=== PATIENT | male | born 1980 | race Caucasian/White ===

== ENCOUNTER 2019-09-20 16:11 | Inpatient (IN) | payer BC, OTHER ==
[~2019-09-20] VITALS: Ht 182.9 cm; Wt 95.3 kg
[2019-09-20] MEDS ORDERED: ADENOSINE 6 MG/2 ML ONE (16:47)
[2019-09-20] MEDS ORDERED: SODIUM CHLORIDE FLUSH 10ML SYR IVF ONE (17:00)
[2019-09-20] MEDS ORDERED: ADENOSINE 6 MG/2 ML IVPush ONE ×2 (17:00)
[2019-09-20] MEDS ORDERED: SODIUM CHLORIDE 0.9% 1,000ML IVBOLUS ONE (17:00)
[2019-09-20 17:01] LABS: BASOPHILS # (AUTO) 0.03 x10^3/uL (0-0.1); BASOPHILS % (AUTO) 0 % (0-1); EOSINOPHILS # (AUTO) 0.09 x10^3/uL (0-0.4); EOSINOPHILS % (AUTO) 1 % (1-7); LYMPHOCYTES # (AUTO) 1.96 x10^3/uL (1-3.4); LYMPHOCYTES % (AUTO) 25 % (22-44); MD NO; MEAN CORPUSCULAR HEMOGLOBIN 32.7 pg (27.5-34.5); MEAN CORPUSCULAR VOLUME 99.1 fL (81-97); MEAN PLATELET VOLUME 8.2 fL (7.4-10.4); MONOCYTES # (AUTO) 0.48 x10^3/uL (0.2-0.8); MONOCYTES % (AUTO) 6 % (2-9); NEUTROPHILS # (AUTO) 5.15 x10^3/uL (1.8-6.8); NEUTROPHILS % (AUTO) 67 % (42-75); PLATELET COUNT 220 x10^3/uL (130-400); RED BLOOD COUNT 5.15 x10^6/uL (4.38-5.82); RED CELL DISTRIBUTION WIDTH 13.9 % (9.4-14.8)
[2019-09-20 17:06] LABS: ALANINE AMINOTRANSFERASE 74 U/L (12-78); ALBUMIN 4.2 g/dL (3.4-5.0); ANION GAP 10 mmol/L (5-15); CHLORIDE 109 mmol/L (98-107); CREATININE 1.02 mg/dL (0.7-1.3)
[2019-09-20 17:08] LABS: ALKALINE PHOSPHATASE 60 U/L (45-117); BILIRUBIN,TOTAL 0.4 mg/dL (0.2-1.0); TOTAL PROTEIN 7.7 g/dL (6.4-8.2)
[2019-09-20] MEDS ORDERED: DILTIAZEM 125 MG in SODIUM CHLORIDE 0.9% 100 ML IV SCH ×2 (17:30→19:30)
[2019-09-20] MEDS ORDERED: RIVAROXABAN 20 MG TABLET PO ONE (18:00)
--- NOTE | 2019-09-20 18:00 | NUR ---
LATE NOTE DUE TO PT CARE: PT ARRIVED WITH HR 140-150 FOR A FEW WEEKS. TWO PIV PLACED BY TASK RN. IVF RUNNING, ADENOSINE PULLED AND DRAWN UP, CRASH CART PLACED IN ROOM. DR MCHUGH NOTIFIED PT READY FOR ADENOSINE. ADENOSINE 6MG IV GIVEN WITH NO CHANGE IN HR. ADENOSINE 12MG IV GIVEN WITH SHORT TWO BEAT SLOWING TO SHOW A FLUTTER. PT UPDATED ON POC BY MD AT THAT TIME. PT TO BE ADMITTED. CARDIZEM RUNNING PER MAY. PT RESTING COMFORTABLY ON RKREMMLING. LEANNA.
[2019-09-20] MEDS ORDERED: RIVAROXABAN 20 MG TABLET ONE (18:54)
[2019-09-20] MEDS ORDERED: NICOTINE 14MG/24 HR PATCH.TD24 ONE (18:54)
[2019-09-20] MEDS ORDERED: NICOTINE 14MG/24 HR PATCH.TD24 TD ONE (19:00)
--- NOTE | 2019-09-20 19:05 | NUR ---
PT AMBULATED TO RESTROOM WITH STEADY GAIT AND PROVIDED URINE SAMPLE. RN REHABILITATION PER MAY. PT CONNECTED TO ALL MONITORING AND MEDS. HR STILL IN 140s. NOTIFIED.
[2019-09-20 19:30] LABS: AMPHETAMINE SCREEN, URINE Negative (Negative); BARBITURATE SCREEN, URINE Negative (Negative); BENZODIAZEPINE SCREEN, URINE Negative (Negative); CANNABINOID SCREEN, URINE Positive (Negative); COCAINE SCREEN, URINE Negative (Negative); METHADONE SCREEN, URINE Negative (Negative); OPIATE SCREEN, URINE Negative (Negative)
--- NOTE | 2019-09-20 19:30 | NUR ---
HOSPITALIST AT BEDSIDE.
[2019-09-20] MEDS ORDERED: LORazepam 2 MG/ML, 1ML ONE (19:37)
--- NOTE | 2019-09-20 19:40 | NUR ---
STAINED GLASS PAINTER PER MAR.
--- NOTE | 2019-09-20 19:57 | NUR ---
REPORT GIVEN TO ANA COHEN.
[2019-09-20] MEDS ORDERED: LORazepam 2 MG/ML, 1ML IVPush ONE (20:00)
[2019-09-20] MEDS ORDERED: PROMETHAZINE 25 MG/ML, 1ML IM PRN (20:30)
[2019-09-20] MEDS ORDERED: ACETAMINOPHEN 325 MG TABLET PO PRN (20:30)
[2019-09-20] MEDS ORDERED: LORazepam 2 MG/ML, 1ML IV PRN ×5 (20:30)
[2019-09-20] MEDS ORDERED: LORazepam 0.5MG TABLET PO PRN (20:30)
[2019-09-20] MEDS ORDERED: LORazepam 1MG TABLET PO PRN ×2 (20:30)
[2019-09-20 21:02] VITALS: BP 119/82
[2019-09-20] MEDS ORDERED: NICOTINE 14MG/24 HR PATCH.TD24 TD SCH (21:30)
[2019-09-20] MEDS ORDERED: [UNRECOGNIZED DRUG - REMARK] MC SCH (21:30)
[2019-09-20] MEDS ORDERED: DIAZEPAM 10 MG TABLET PO SCH (22:00)
[2019-09-20] MEDS: DIAZEPAM 5 MG TABLET PO SCH (22:20)
[2019-09-20] MEDS: POTASSIUM CHLORIDE 20 MEQ, MAGNESIUM SULFATE 2 GM, THIAMINE 200 MG, MVI ADULT 10 ML, FO... IV SCH (22:20)
[2019-09-21] VITALS: BP 117/78
[2019-09-21] MEDS: DILTIAZEM 125 MG in SODIUM CHLORIDE 0.9% 100 ML IV SCH ×2 (01:27→08:44)
[2019-09-21] MEDS: DIAZEPAM 5 MG TABLET PO SCH ×5 (04:30→21:58)
[2019-09-21 07:50] VITALS: BP 135/80
[2019-09-21] MEDS: POTASSIUM CHLORIDE 20 MEQ, MAGNESIUM SULFATE 2 GM, THIAMINE 200 MG, MVI ADULT 10 ML, FO... IV SCH (08:44)
[2019-09-21] MEDS ORDERED: METOPROLOL TARTRATE 25 MG TAB ONE (08:47)
[2019-09-21 08:48] LABS: ANION GAP 6 mmol/L (5-15); CALCIUM 8.9 mg/dL (8.5-10.1); CHLORIDE 110 mmol/L (98-107); CREATININE 0.79 mg/dL (0.7-1.3)
[2019-09-21] MEDS: METOPROLOL TARTRATE 25 MG TAB PO SCH ×2 (08:49→17:19)
[2019-09-21] MEDS: APIXABAN 5 MG TABLET PO SCH ×2 (08:51→19:53)
[2019-09-21] MEDS ORDERED: SODIUM CHLORIDE 0.9% 1,000 ML IV SCH (10:00)
[2019-09-21] MEDS ORDERED: PROPOFOL 10 MG/ML, 20ML ONE ×2 (10:35)
[2019-09-21 12:14] VITALS: BP 122/89
[2019-09-21] MEDS ORDERED: RIVAROXABAN 20 MG TABLET PO SCH (17:00)
[2019-09-21 19:38] VITALS: BP 138/100
[2019-09-22] MEDS: DIAZEPAM 5 MG TABLET PO SCH ×2 (04:00→09:32)
[2019-09-22 05:06] VITALS: BP 147/99
[2019-09-22] MEDS: METOPROLOL TARTRATE 25 MG TAB PO SCH (05:11)
[2019-09-22 05:25] LABS: ANION GAP 6 mmol/L (5-15); CHLORIDE 110 mmol/L (98-107); CREATININE 0.88 mg/dL (0.7-1.3)
[2019-09-22 05:27] LABS: BASOPHILS # (AUTO) 0.02 x10^3/uL (0-0.1); BASOPHILS % (AUTO) 0 % (0-1); EOSINOPHILS # (AUTO) 0.04 x10^3/uL (0-0.4); EOSINOPHILS % (AUTO) 0 % (1-7); LYMPHOCYTES # (AUTO) 1.25 x10^3/uL (1-3.4); LYMPHOCYTES % (AUTO) 11 % (22-44); MD NO; MEAN CORPUSCULAR HEMOGLOBIN 32.9 pg (27.5-34.5); MEAN CORPUSCULAR HGB CONC 33.4 g/dL (33.2-36.2); MEAN CORPUSCULAR VOLUME 98.6 fL (81-97); MEAN PLATELET VOLUME 8.8 fL (7.4-10.4); MONOCYTES # (AUTO) 0.76 x10^3/uL (0.2-0.8); MONOCYTES % (AUTO) 7 % (2-9); NEUTROPHILS # (AUTO) 9.53 x10^3/uL (1.8-6.8); NEUTROPHILS % (AUTO) 82 % (42-75); PLATELET COUNT 180 x10^3/uL (130-400); RED BLOOD COUNT 4.65 x10^6/uL (4.38-5.82)
[2019-09-22 07:30] VITALS: BP 126/86
[2019-09-22] MEDS: POTASSIUM CHLORIDE 20 MEQ, MAGNESIUM SULFATE 2 GM, THIAMINE 200 MG, MVI ADULT 10 ML, FO... IV SCH (09:32)
[2019-09-22] MEDS: APIXABAN 5 MG TABLET PO SCH (09:32)
[2019-09-22 12:35] VITALS: BP 135/94
[2019-09-22] MEDS ORDERED: FOLI-17 PO (14:46)
[2019-09-22] MEDS ORDERED: METO-93 PO (14:46)
[2019-09-22] MEDS ORDERED: THIA100T67 PO (14:46)
[2019-09-22] MEDS ORDERED: APIX5TAB PO (14:46)
[2019-09-23] MEDS ORDERED: METOPROLOL SUCCINATE 50 MG TAB.ER.24H PO SCH (08:00)
== END 2019-09-22 15:34 | disposition home or self-care (01) | DRG 308 ==
LOC: ED 18:36 → EDIP 19:02 → 5SO 20:55 → DCLOUNGE 09-22 15:25
PROVIDERS: ADMIT Family Medicine; ATTEND Hospitalist
PROC: 5A2204Z Restoration of Cardiac Rhythm, Single (ICD-10-PCS; principal; 2019-09-20)
DX: I48.92 Unspecified atrial flutter (principal); I50.31 Acute diastolic (congestive) heart failure; D68.69 Other thrombophilia; F10.239 Alcohol dependence with withdrawal, unspecified; I45.89 Other specified conduction disorders; D75.89 Other specified diseases of blood and blood-forming organs; F12.10 Cannabis abuse, uncomplicated; I11.0 Hypertensive heart disease with heart failure; F17.200 Nicotine dependence, unspecified, uncomplicated; Y99.0 Civilian activity done for income or pay; Z79.01 Long term (current) use of anticoagulants; Z79.899 Other long term (current) drug therapy; Y90.9 Presence of alcohol in blood, level not specified
CPT/HCPCS: 36415; 92960; 96361; 96374; 96375; 99285; J7042; 71045; 80048; 80053; 80307; 83735; 84100; 84443; 85025; 87635; 93005; 93312; 93321; 93325; G0378; J0153; J2704; J3411; J3475; J3480; J2060; J7030

== ENCOUNTER 2019-11-12 15:37 | Emergency (ER) | payer OTHER ==
[~2019-11-12] VITALS: Ht 182.9 cm; Wt 92.5 kg
[~2019-11-12 15:37] MED LIST: APIX5TAB PO; FOLI-17 PO; METO-93 PO; THIA100T67 PO
--- NOTE | 2019-11-12 16:13 | NUR ---
PT. IS A & O X 4 WITH A GCS OF 15. PT. PRESENTS TO THE ED TODAY WITH C/O RAPID AFIB WITH RVR. PT. HAS HX OF THE SAME X 2 MONTHS AGO AT WHICH TIME HE WAS CARDIOVERTED. THE PT. WAS PLACED ON ELIQUIS WHICH HE HASN'T TAKEN FOR THE MONTH. PT. HAD NOT BEEN DRINKING X 5 WEEKS AND STARTED AGAIN ON SATURDAY. PT. THINKS HE MAY HAVE GONE INTO AFIB SATURDAY BUT FELT POORLY TODAY AND DROVE HIMSELF TO THE ED. PT.'S LUNGS ARE CTA. MM ARE PINK AND MOIST WITH PULSES +2 THROUGHOUT. PT. HAS NO EDEMA PRESENT IN HIS EXTREMITIES. PT.'S CHEST RISE AND FALL IS SYMMETRICAL AND RESPIRATIONS ARE EUPNEIC. PT.S NECK IS MIDLINE WITHOUT JVD NOTED. PT. IS AMBULATORY WITHOUT DEFICITS. PUPILS ARE PERRLA.
[2019-11-12] MEDS ORDERED: DILTIAZEM 5 MG/ML, 5ML IVPush ONE ×2 (16:44→18:00)
[2019-11-12] MEDS ORDERED: DILTIAZEM 5 MG/ML, 5ML ONE ×2 (16:49→17:49)
[2019-11-12] MEDS ORDERED: SODIUM CHLORIDE 0.9% 1,000ML IVBOLUS ONE (17:00)
[2019-11-12] MEDS ORDERED: SODIUM CHLORIDE FLUSH 10ML SYR IVF ONE (17:00)
[2019-11-12] MEDS ORDERED: ASPIRIN 81 MG TABLET CHEW PO ONE (17:00)
[2019-11-12 17:08] LABS: BASOPHILS # (AUTO) 0.03 x10^3/uL (0-0.1); BASOPHILS % (AUTO) 0 % (0-1); EOSINOPHILS # (AUTO) 0.03 x10^3/uL (0-0.4); EOSINOPHILS % (AUTO) 0 % (1-7); LYMPHOCYTES # (AUTO) 2.12 x10^3/uL (1-3.4); LYMPHOCYTES % (AUTO) 29 % (22-44); MD NO; MEAN CORPUSCULAR HEMOGLOBIN 31.4 pg (27.5-34.5); MEAN CORPUSCULAR HGB CONC 33.3 g/dL (33.2-36.2); MEAN CORPUSCULAR VOLUME 94.5 fL (81-97); MEAN PLATELET VOLUME 8.6 fL (7.4-10.4); MONOCYTES # (AUTO) 0.66 x10^3/uL (0.2-0.8); MONOCYTES % (AUTO) 9 % (2-9); NEUTROPHILS # (AUTO) 4.57 x10^3/uL (1.8-6.8); NEUTROPHILS % (AUTO) 62 % (42-75); PLATELET COUNT 204 x10^3/uL (130-400); RED BLOOD COUNT 5.09 x10^6/uL (4.38-5.82); RED CELL DISTRIBUTION WIDTH 14.3 % (9.4-14.8)
--- NOTE | 2019-11-12 17:11 | NUR ---
PT. WAS MEDICATED PER MD ORDERS. NS BOLUS IS INFUSING. PT. REMAINS MONITORED. SR ARE UP X 2 WITH THE CALL LIGHT IN PLACE. PT. HAS A BLANKET FOR WARMTH.
[2019-11-12] MEDS ORDERED: ASPIRIN 81 MG TABLET CHEW ONE (17:13)
[2019-11-12 17:20] LABS: ALANINE AMINOTRANSFERASE 38 U/L (12-78); ALBUMIN 4.4 g/dL (3.4-5.0); ANION GAP 9 mmol/L (5-15); CALCIUM 9.5 mg/dL (8.5-10.1); CHLORIDE 103 mmol/L (98-107); CREATININE 0.98 mg/dL (0.7-1.3)
[2019-11-12 17:24] LABS: ALKALINE PHOSPHATASE 63 U/L (45-117); BILIRUBIN,TOTAL 1.1 mg/dL (0.2-1.0); TOTAL PROTEIN 7.8 g/dL (6.4-8.2); TROPONIN I < 0.015 ng/mL (0.000-0.045)
--- NOTE | 2019-11-12 17:48 | NUR ---
AWARE OF PT.'S HR. ORDERS RECEIVED. PT. VOIDED 600 CC CLEAR, YELLOW URINE. REPORT WAS GIVEN TO TAD COHEN.
--- NOTE | 2019-11-12 17:51 | NUR ---
REPORT RECEIVED FROM NOEL LESTER. PLAN OF CARE DISCUSSED
[2019-11-12 17:58] VITALS: BP 136/82
--- NOTE | 2019-11-12 17:58 | NUR ---
PATIENT MEDICATED PER EMAR, TOLERATED WELL. HR BETWEEN 115-135
[2019-11-12] MEDS ORDERED: APIXABAN 5 MG TABLET ONE (18:10)
--- NOTE | 2019-11-12 18:10 | NUR ---
PHARMACY SLIP SENT FOR METOPROLOL
[2019-11-12] MEDS ORDERED: APIXABAN 5 MG TABLET PO ONE (18:30)
[2019-11-12] MEDS ORDERED: METOPROLOL SUCCINATE 50 MG TAB.ER.24H PO ONE (18:30)
--- NOTE | 2019-11-12 18:31 | NUR ---
PATIENT MEDICATED PER EMAR
--- NOTE | 2019-11-12 19:30 | NUR ---
Patient given discharge instructions and they have confirmed that they understand the instructions. Patient ambulatory with steady gait.
[2019-11-13] MEDS ORDERED: METOPROLOL SUCCINATE 50 MG TAB.ER.24H PO SCH (06:00)
== END 2019-11-12 19:32 | disposition home or self-care (01) ==
LOC: ED 19:14
DX: I48.0 Paroxysmal atrial fibrillation (principal); R00.2 Palpitations; R07.89 Other chest pain; F10.10 Alcohol abuse, uncomplicated; Z72.9 Problem related to lifestyle, unspecified; Y90.0 Blood alcohol level of less than 20 mg/100 ml
CPT/HCPCS: 36415; 71045; 80053; 83735; 83880; 84484; 85025; 93005; 96361; 96374; 96376; 99285; J7030

== ENCOUNTER 2019-12-17 09:28 | Day surgery (SDC) | payer OTHER ==
[~2019-12-17] VITALS: Ht 185.4 cm; Wt 92.0 kg
[2019-12-17] MEDS ORDERED: SODIUM CHLORIDE 0.9% 500 ML IV PRN (10:00)
[2019-12-17 10:07] VITALS: BP 111/69
[2019-12-17] MEDS ORDERED: PROPOFOL 10 MG/ML, 20ML ONE (10:10)
[2019-12-17 10:23] LABS: ANION GAP 3 mmol/L (5-15); CALCIUM 9.2 mg/dL (8.5-10.1); CHLORIDE 110 mmol/L (98-107)
== END 2019-12-17 13:13 | disposition home or self-care (01) ==
LOC: CACL 09:28
PROVIDERS: ATTEND Internal Medicine Cardiovascular Disease
DX: I48.92 Unspecified atrial flutter (principal); I48.91 Unspecified atrial fibrillation; I10 Essential (primary) hypertension; F10.239 Alcohol dependence with withdrawal, unspecified; Z79.01 Long term (current) use of anticoagulants; Z79.899 Other long term (current) drug therapy
CPT/HCPCS: 36415; 80048; 92960; J2704

== ENCOUNTER 2020-01-06 15:55 | Emergency (ER) | payer OTHER ==
[~2020-01-06] VITALS: Ht 182.9 cm; Wt 92.3 kg
[2020-01-06 15:59] VITALS: BP 133/86
[2020-01-06] MEDS ORDERED: SODIUM CHLORIDE FLUSH 10ML SYR IVF ONE (16:30)
[2020-01-06 16:35] LABS: BASOPHILS % (AUTO) 1 % (0-1); EOSINOPHILS % (AUTO) 2 % (1-7); LYMPHOCYTES % (AUTO) 31 % (22-44); MEAN CORPUSCULAR HEMOGLOBIN 29.7 pg (27.5-34.5); MEAN CORPUSCULAR HGB CONC 33.3 g/dL (33.2-36.2); MEAN PLATELET VOLUME 8.4 fL (7.4-10.4); MONOCYTES % (AUTO) 11 % (2-9); NEUTROPHILS % (AUTO) 56 % (42-75); PLATELET COUNT 239 x10^3/uL (130-400); RED BLOOD COUNT 5.89 x10^6/uL (4.38-5.82); RED CELL DISTRIBUTION WIDTH 13.6 % (9.4-14.8)
[2020-01-06 16:41] LABS: MD NO
[2020-01-06 16:43] LABS: ALBUMIN 4.1 g/dL (3.4-5.0); ANION GAP 5 mmol/L (5-15); CALCIUM 9.2 mg/dL (8.5-10.1); CHLORIDE 104 mmol/L (98-107)
[2020-01-06 16:45] LABS: PROTHROMBIN TIME 10.6 Seconds (9.6-11.5)
--- NOTE | 2020-01-06 16:45 | NUR ---
PT CAME IN CO OF HIS AFIB ACTIN UP. PT STATES "IT STARTED SOMETIME THIS MORNING. CHAVA BEEN TIRED AND DIZZY". PT TAKES ELIQUIS AND HAS BEEN CRDIOVERTED TWICE BEFORE
[2020-01-06] MEDS ORDERED: PROPOFOL 100 ML IV ONE (16:47)
[2020-01-06] MEDS ORDERED: PROPOFOL 10 MG/ML, 20ML ONE ×2 (16:47→17:37)
[2020-01-06 16:55] LABS: ALANINE AMINOTRANSFERASE 38 U/L (12-78); ALKALINE PHOSPHATASE 83 U/L (45-117); BILIRUBIN,TOTAL 0.6 mg/dL (0.2-1.0); CREATININE 1.11 mg/dL (0.7-1.3)
--- NOTE | 2020-01-06 17:00 | NUR ---
LATE ENTRY: PT TO BE CARDIOVETED. SUCTION SET UP. CRASH CART IN ROOM. AMBU BAG AND SUCTION SET UP. MD PRESENT FOR PROCEDUARL SEDATION
--- NOTE | 2020-01-06 17:30 | NUR ---
PT RECOVERING. PT AOX4. ON RM AIR. PT TOLERATED PROCEDURE WELL
--- NOTE | 2020-01-06 17:40 | NUR ---
PT ADM 170MG PROPOFOL. 230MG WASTED. WITNESSED BY NOEL MALONEY
--- NOTE | 2020-01-06 17:48 | NUR ---
SEE PRINT OUT FOR VITALS
--- NOTE | 2020-01-06 17:48 | NUR ---
PT RESTING IN [facility]. NAD. VSS.
[2020-01-06] MEDS ORDERED: PROPOFOL 10 MG/ML, 20ML IVPush ONE (18:30)
--- NOTE | 2020-01-06 19:09 | NUR ---
PT DC WITH FAMILY MEMBER. SEE PRINTOUT FOR VITALS
== END 2020-01-06 19:11 | disposition home or self-care (01) ==
LOC: ED 18:09
DX: I48.92 Unspecified atrial flutter (principal); R07.89 Other chest pain; R00.0 Tachycardia, unspecified; R00.2 Palpitations; R42 Dizziness and giddiness; I48.91 Unspecified atrial fibrillation; F17.200 Nicotine dependence, unspecified, uncomplicated
CPT/HCPCS: 36415; 71045; 80053; 83735; 84443; 85025; 85610; 85730; 92960; 93005; 99285; J2704

== ENCOUNTER 2020-11-10 10:53 | Emergency (ER) | payer OTHER ==
[~2020-11-10] VITALS: Ht 182.9 cm; Wt 100.7 kg
[~2020-11-10 10:53] MED LIST changes: -FOLI-17 PO; +FOLI1TAB32 PO
[2020-11-10] MEDS ORDERED: DILTIAZEM 5 MG/ML, 5ML IV ONE (11:30)
[2020-11-10] MEDS ORDERED: SODIUM CHLORIDE FLUSH 10ML SYR IVF ONE (11:30)
[2020-11-10] MEDS ORDERED: APIXABAN 5 MG TABLET PO ONE (11:45)
[2020-11-10 11:50] LABS: ALANINE AMINOTRANSFERASE 120 U/L (12-78); ANION GAP 6 mmol/L (5-15); CALCIUM 9.5 mg/dL (8.5-10.1); CHLORIDE 103 mmol/L (98-107); CREATININE 0.94 mg/dL (0.7-1.3)
[2020-11-10 11:54] LABS: BASOPHILS % (AUTO) 1 % (0-1); EOSINOPHILS % (AUTO) 4 % (1-7); LYMPHOCYTES % (AUTO) 33 % (22-44); MEAN CORPUSCULAR HEMOGLOBIN 28.8 pg (27.5-34.5); MEAN PLATELET VOLUME 7.3 fL (7.4-10.4); MONOCYTES % (AUTO) 11 % (2-9); NEUTROPHILS % (AUTO) 52 % (42-75); PLATELET COUNT 231 x10^3/uL (130-400); RED BLOOD COUNT 6.01 x10^6/uL (4.38-5.82); RED CELL DISTRIBUTION WIDTH 13.9 % (9.4-14.8)
[2020-11-10 12:02] LABS: ALKALINE PHOSPHATASE 102 U/L (45-117); BILIRUBIN,TOTAL 0.5 mg/dL (0.2-1.0); TOTAL PROTEIN 8.3 g/dL (6.4-8.2)
[2020-11-10 12:03] LABS: TROPONIN I < 0.015 ng/mL (0.000-0.045)
--- NOTE | 2020-11-10 12:08 | NUR ---
PT SELF CONVERTED IN ROOM. MD AWARE AT THIS TIME NEW EKG PERFORMED.
[2020-11-10 12:28] VITALS: BP 129/84
[2020-11-10] MEDS ORDERED: APIXABAN 5 MG TABLET ONE (12:37)
--- NOTE | 2020-11-10 13:29 | NUR ---
Patient/Caregiver given discharge instructions and they have confirmed that they understand the instructions. Patient ambulatory with steady gait. NAD, all questions answered appropriately, denies additional needs at this time. No personal belongings left in room after discharge.
== END 2020-11-10 13:30 | disposition home or self-care (01) ==
LOC: ED 13:20
DX: I48.92 Unspecified atrial flutter (principal); I48.91 Unspecified atrial fibrillation; R00.2 Palpitations; R06.02 Shortness of breath; R00.0 Tachycardia, unspecified; F17.200 Nicotine dependence, unspecified, uncomplicated
CPT/HCPCS: 36415; 71045; 80053; 83735; 84484; 85025; 93005; 99285